=== PATIENT | female | born 1985 | race African-American/Black ===

== ENCOUNTER 2016-09-24 02:01 | Inpatient (IN) | payer MEDICAID, OTHER ==
[~2016-09-24] VITALS: Ht 162.6 cm; Wt 72.6 kg
[~2016-09-24 02:01] MED LIST: PREN1MIS11 PO
[2016-09-24] MEDS ORDERED: LACTATED RINGER'S 1000 ML INJ 1,000 ML IV PRN (02:34)
[2016-09-24] MEDS ORDERED: LACTATED RINGER'S 1000 ML INJ 1,000 ML IV SCH (02:34)
--- NOTE | 2016-09-24 02:42 | HHI.HP ---
HPI Travel History International Travel<30 Days: No Contact w/Intl Traveler<30Days: No Known Affected Area: No History of Present Illness HPI This patient is a 30-year-old 2 para 1 EDC is October 01, 2016 presently at 39 weeks today she presents the chief complaint of onset of contractions at around 1:30 AM subsequent rupture of membranes at about 2:25 PM. Contractions every 2 minutes no vaginal bleeding care was sutured was course is significant for positive group B strep History Past Medical History Narrative Medical No known drug allergies no major medical problems Obstetric History Obstetric History 2 para 1 First baby born July [birth year], 2014 male weight 7 lbs. 5 oz. vaginal delivery Past Surgical History Surgical History: No Previous Surgery Family History Family History: Negative Social History Alcohol Use: No Tobacco Use: No Substance Abuse: No Allergies-Medications (Allergen,Severity, Reaction): Coded Allergies: No Known Allergies (Unverified , 09/19/16) Home Meds Active Scripts W/O Vit A W/ Fe Carbo Pack (Citranatal 90 Dha Pack)90-1 & 300 Mg Pack1 Ea PO DAILY #30 BLISTER Ref 3 30 day supply. Prov:Karie Woods CNM [facility] 09/03/16 W/O Vit A W/ Fe Carbo Pack (Citranatal 90 Dha Pack)90-1 & 300 Mg Pack Sample #3 Prov:Karie Woods CNM [facility] 09/03/16 Review of Systems Gastrointestinal: Abdominal Pain Genitourinary: Other Physical Exam Narrative GENERAL: Well-nourished, well-developed patient. Alert oriented 3 and cooperative in moderate distress secondary to uterine contractions CARDIOVASCULAR: Regular rate and rhythm without murmurs, gallops, or rubs. RESPIRATORY: Breath sounds equal bilaterally. No accessory muscle use. ABDOMEN/GI: Gravid term estimated weight 8 pounds palpable contractions every 2 minutes Gravid to [-] weeks size term Fundal Height: [-] GENITOURINARY: External Genitalia: intact and normal in appearance BUS glands: [-] Cervix: [-] Midline Dilatation: [-] 7 cm Effacement: [-] 100% effaced Station: [-] +1 station Presentation: [-] Vertex Membranes: ruptured] Uterine Contractions: [-] Every 2 minutes FHT's: Category: [-] 1 Baseline: [-] 140 Reactive: [-] Reactive with accelerations up to 160 Variability: [-] Moderate Decels: [-] Negative EXTREMITIES: No cyanosis or edema.2+ NEUROLOGICAL: Awake and alert. Motor and sensory grossly within normal limits. Five out of 5 muscle strength in all muscle groups. Normal speech. Data Data Vital Signs Reviewed: Yes (blood pressure blood pressure 128/78 afebrile) Orders Admit To Inpatient (09/24/16 ) Ob (2e) Additional Admit Info (09/24/16 02:24) Admit To Inpatient (09/24/16 ) Code Status (09/24/16 02:34) Vital Signs (Adult) .Per protocol (09/24/16 02:34) ^ Heart (09/24/16 02:34) ^ Amnioinfusion (09/24/16 02:34) Urinary Catheter Management .ONCE (09/24/16 02:34) Diet Liquid (09/24/16 Breakfast) Lactated Ringer's 1000 Ml Inj (Lr 1000 M (09/24/16 02:34) Lactated Ringer's 1000 Ml Inj (Lr 1000 M (09/24/16 02:34) Sodium Chlorid 0.9% 500 Ml Inj (Ns 500 M (09/24/16 02:45) Sodium Chlor 0.9% 1000 Ml Inj (Ns 1000 M (09/24/16 02:54) Lidocaine 1% Inj (50 Ml) (Xylocaine 1% I (09/24/16 02:45) Citric Acid-Sodium Citrate Liq (Bicitra (09/24/16 02:45) Ondansetron Inj (Zofran Inj) (09/24/16 02:45) Fentanyl Inj (Fentanyl Inj) (09/24/16 02:45) Fentanyl Inj (Fentanyl Inj) (09/24/16 02:45) Penicillin G Potassium Inj (Pfizerpen-G (09/24/16 02:45) Assessment/Plan Assessment and Plan Assessment; intrauterine at term Active labor Positive group B strep Plan; admitted IV fluid hydration CBC type and screen Penicillin coverage for group B strep Pain control Anticipate vaginal delivery Vee Kelley MD Sep 24, 2016 02:42
[2016-09-24] MEDS ORDERED: MINERAL OIL 10 ML VIAL TOPICAL PRN (02:45)
[2016-09-24] MEDS ORDERED: LIDOCAINE HCL 1% 50 ML VIAL I-DERMAL PRN (02:45)
[2016-09-24] MEDS ORDERED: ONDANSETRON HCL 4 MG/2 ML VIAL IV PRN (02:45)
[2016-09-24] MEDS ORDERED: OXYTOCIN 30 UNITS-500ML PREMIX 500 ML IV ONE (02:45)
[2016-09-24] MEDS ORDERED: LIDOCAINE HCL 1% 50 ML VIAL INFIL PRN (02:45)
[2016-09-24] MEDS ORDERED: CITRIC ACID-SODIUM CITRATE LIQ 30 ML UDC PO SCH (02:45)
[2016-09-24] MEDS ORDERED: SODIUM CHLORID 0.9% 500 ML INJ 500 ML IV PRN (02:45)
[2016-09-24] MEDS ORDERED: PENICILLIN G POTASSIUM INJ 5,000,000 UNITS in SODIUM CHLORIDE 0.9% INJ 100 ML IV ONE (02:45)
[2016-09-24 02:46] LABS: BASOPHIL % 0.3 % (0.0-2.0); EOSINOPHIL % 0.2 % (0.0-4.0); HEMATOCRIT 37.1 % (35.0-46.0); HEMO FLAGS DIFF FINAL; LYMPH % 29.3 % (9.0-44.0); LYMPHOCYTE # 2.8 TH/MM3 (1.0-4.8); MEAN CELL VOLUME 92.5 FL (80.0-100.0); MEAN CORPUSCULAR HEMOGLOBIN 31.7 PG (27.0-34.0); MEAN CORPUSCULAR HGB CONC 34.3 % (32.0-36.0); MONO % 7.2 % (0.0-8.0); PLATELET COUNT 206 TH/MM3 (150-450); RED BLOOD COUNT 4.01 MIL/MM3 (4.00-5.30); RED CELL DISTRIBUTION WIDTH 16.7 % (11.6-17.2); WHITE BLOOD COUNT 9.5 TH/MM3 (4.0-11.0)
[2016-09-24] MEDS ORDERED: SODIUM CHLOR 0.9% 1000 ML INJ 1,000 ML IV PRN (02:54)
--- NOTE | 2016-09-24 03:22 | PD.OB.DELI ---
Delivery Date: Sep 24, 2016 Anesthesia: None Episiotomy: None Vaginal Delivery: Normal Presentation: Occiput anterior Nuchal Cord: None : Female One Minute : 9 Five Minute : 9 Weight: [id number] Infant Care: Suctioned Placenta: Spontaneous delivery, Intact, 3 vessel cord Laceration: 2 deg Repair: Chromic running Additional Information This 30-year-old 2 now para 2 at 39 weeks presented to labor and delivery at 4 cm rapidly progressed to completely dilated completely effaced light meconium fluid group B strep positive she received 1 dose of penicillin delivered over an intact perineum a viable female weight 6 lbs. 11 oz. Apgars of 9 at 1 minute 9 at 5 minutes. Placenta delivered spontaneously and intact she sustained a small second-degree laceration which was repaired with 2- 0 chromic suture under local lidocaine infiltration Uterus is firm no active bleeding Estimated blood loss less than 300 cc Sponge and instrument count were correct Baby stable mother stable Mother's questions answered Vee Kelley MD Sep 24, 2016 03:22
[2016-09-24] MEDS ORDERED: ALUMINUM/MAGNESIUM/SIMETH 30 ML CUP PO PRN (03:30)
[2016-09-24] MEDS ORDERED: ONDANSETRON ODT 4 MG TAB PO PRN (03:30)
[2016-09-24] MEDS ORDERED: SODIUM CHLORIDE 0.9% FLUSH 5 ML FLUSH IV PRN (03:30)
[2016-09-24] MEDS ORDERED: WITCH HAZEL 50%/GLYCERIN 12.5% 40 PAD JAR TOPICAL PRN (03:30)
[2016-09-24] MEDS ORDERED: ACETAMINOPHEN 325 MG TAB PO PRN (03:30)
[2016-09-24] MEDS ORDERED: DOCUSATE SODIUM 50 MG/SENNA 8.6 MG TAB PO PRN (03:30)
[2016-09-24] MEDS ORDERED: BENZOCAINE 20% TOPICAL SPRAY 60 ML CAN TOPICAL PRN (03:30)
[2016-09-24] MEDS ORDERED: ZOLPIDEM TARTRATE 5 MG TAB PO PRN (03:30)
[2016-09-24] MEDS ORDERED: PENICILLIN G POTASSIUM INJ 2,500,000 UNITS in SODIUM CHLORIDE 0.9% INJ 100 ML IV SCH (06:45)
--- NOTE | 2016-09-24 08:12 | HHI.OB ---
Subjective Post Day: 0 Remarks Pt seen and examined this morning. Post day # 0 AFVSS overnight. Decreased lochia. Denies dysuria. No breast tenderness. She is feeding the baby via breast and bottle. Appetite good. No nausea or vomiting. Patient has not yet had a bowel movement or passed gas. Ambulating well. Denies calf pain or shortness of breath. Otherwise, she is doing well this morning and has no other concerns. Objective Objective Remarks GENERAL: Well-nourished, well-developed patient. CARDIOVASCULAR: Regular rate and rhythm without murmurs, gallops, or rubs. RESPIRATORY: Breath sounds equal bilaterally. No accessory muscle use. ABDOMEN/GI: Abdomen soft, non-tender. Fundus: Firm, non-tender at umbilicus. GENITOURINARY: Light to moderate bleeding. EXTREMITIES: No cyanosis or edema, non-tender, without signs of DVT. Medications and IVs Current Medications Medications (Trade) Dose Ordered Sig/Nikki Route Start Time Stop Time Status Last Admin (NS Flush) 2 ml BID IV 09/24/16 09:00 (NS Flush) 2 ml UNSCH PRN IV 09/24/16 03:30 (Tylenol) 650 mg Q4H PRN PO 09/24/16 03:30 (Motrin) 600 mg Q6H PRN PO 09/24/16 03:30 (Americaine 20% Top Spr) 1 spray Q4H PRN TOPICAL 09/24/16 03:30 (Tucks Pads) 1 applic QID PRN TOPICAL 09/24/16 03:30 (Bethanie-Colace) 2 tab Q12H PRN PO 09/24/16 03:30 (Ambien) 5 mg HS PRN PO 09/24/16 03:30 (M-M-R Ii Inj) 0.5 ml ONCE ONCE SQ 09/24/16 16:00 09/24/16 16:01 (Boostrix Inj) 0.5 ml ONCE ONCE IM 09/24/16 16:00 09/24/16 16:01 (Mag-Al Plus Susp Liq) 15 ml Q8H PRN PO 09/24/16 03:30 (Zofran Odt) 4 mg Q6H PRN PO 09/24/16 03:30 Assessment/Plan Assessment and Plan 30y/o female who is day # 0 s/p . -Continue routine care. -Percocet and Motrin PRN pain. -Encouraged OOB. Advised pelvic rest for 6 wks. -Re: ctrl, she would like an IUD. Arrangements to be discussed at 6 week OB appointment. -Anticipate discharge in 1-2 days. wyatt Flowers MD Discharge Planning 1-2 days Herrera Bustillo MD R1 Sep 24, 2016 08:12
[2016-09-24] MEDS: IBUPROFEN 600 MG TAB PO PRN ×2 (09:19→23:18)
[2016-09-24] MEDS: SODIUM CHLORIDE 0.9% FLUSH 5 ML FLUSH IV SCH (09:20)
[2016-09-24 15:38] LABS: BLOOD, URINE MOD (NEG); COMMENT (UR) CULT NOT INDICATED; CULTURE IF INDICATED CULT NOT INDICATED; GLUCOSE,URINE NEG (NEG); KETONE, URINE NEG (NEG); NITRITE,URINE NEG (NEG); URINE COLOR YELLOW (YELLW/STRAW)
[2016-09-24] MEDS ORDERED: MEASLES, MUMPS, RUBELLA VACCINE 0.5 ML VIAL SQ ONE (16:00)
[2016-09-24] MEDS ORDERED: DIPHTH/TETANUS/ACEL PERTUSSIS (BOOSTER) 0.5 ML VIAL/PFS IM ONE (16:00)
--- NOTE | 2016-09-25 07:58 | HHI.OB ---
Subjective Post Day: 1 Remarks doing well , + cramps, bleeding decreased, tolerating diet , nl bowel & bladder fxn exam -- uterus NT at umb Imp -nl PP course Plan -D/C in am Objective Objective Remarks GENERAL: Well-nourished, well-developed patient. CARDIOVASCULAR: Regular rate and rhythm without murmurs, gallops, or rubs. RESPIRATORY: Breath sounds equal bilaterally. No accessory muscle use. ABDOMEN/GI: Abdomen soft, non-tender. Fundus: Firm, non-tender at umbilicus. GENITOURINARY: Light to moderate bleeding. EXTREMITIES: No cyanosis or edema, non-tender, without signs of DVT. Medications and IVs Current Medications Medications (Trade) Dose Ordered Sig/Nikki Route Start Time Stop Time Status Last Admin (NS Flush) 2 ml BID IV 09/24/16 09:00 09/24/16 09:20 (NS Flush) 2 ml UNSCH PRN IV 09/24/16 03:30 (Tylenol) 650 mg Q4H PRN PO 09/24/16 03:30 (Motrin) 600 mg Q6H PRN PO 09/24/16 03:30 09/24/16 23:18 (Americaine 20% Top Spr) 1 spray Q4H PRN TOPICAL 09/24/16 03:30 (Tucks Pads) 1 applic QID PRN TOPICAL 09/24/16 03:30 (Bethanie-Colace) 2 tab Q12H PRN PO 09/24/16 03:30 (Ambien) 5 mg HS PRN PO 09/24/16 03:30 (Mag-Al Plus Susp Liq) 15 ml Q8H PRN PO 09/24/16 03:30 (Zofran Odt) 4 mg Q6H PRN PO 09/24/16 03:30 (Flu (Quadrivalent) Vaccine Inj) 0.5 ml ONCE ONCE IM 09/25/16 10:00 09/25/16 10:01 Assessment/Plan Assessment and Plan 30y/o female who is day # 0 s/p . -Continue routine care. -Percocet and Motrin PRN pain. -Encouraged OOB. Advised pelvic rest for 6 wks. -Re: ctrl, she would like an IUD. Arrangements to be discussed at 6 week OB appointment. -Anticipate discharge in 1-2 days. Discharge Planning 1-2 days Rik Quiles II, MD Sep 25, 2016 07:58 Rik Quiles II, MD Sep 25, 2016 07:58
--- NOTE | 2016-09-25 08:54 | HHI.OB ---
Subjective Post Day: 1 Remarks Pt seen and examined this morning. day # 1 AFVSS overnight. Decreased lochia. Denies dysuria. No breast tenderness. She is feeding the baby via breast. Appetite good. No nausea or vomiting. Patient has not had a bowel movement, but has passed gas. Ambulating well. Denies calf pain or shortness of breath. Otherwise, she is doing well this morning and has no other concerns. Objective Objective Remarks GENERAL: Well-nourished, well-developed patient. CARDIOVASCULAR: Regular rate and rhythm without murmurs, gallops, or rubs. RESPIRATORY: Breath sounds equal bilaterally. No accessory muscle use. ABDOMEN/GI: Abdomen soft, non-tender. Fundus: Firm, non-tender at umbilicus. GENITOURINARY: Light to moderate bleeding. EXTREMITIES: No cyanosis or edema, non-tender, without signs of DVT. Medications and IVs Current Medications Medications (Trade) Dose Ordered Sig/Nikki Route Start Time Stop Time Status Last Admin (NS Flush) 2 ml BID IV 09/24/16 09:00 09/24/16 09:20 (NS Flush) 2 ml UNSCH PRN IV 09/24/16 03:30 (Tylenol) 650 mg Q4H PRN PO 09/24/16 03:30 (Motrin) 600 mg Q6H PRN PO 09/24/16 03:30 09/24/16 23:18 (Americaine 20% Top Spr) 1 spray Q4H PRN TOPICAL 09/24/16 03:30 (Tucks Pads) 1 applic QID PRN TOPICAL 09/24/16 03:30 (Bethanie-Colace) 2 tab Q12H PRN PO 09/24/16 03:30 (Ambien) 5 mg HS PRN PO 09/24/16 03:30 (Mag-Al Plus Susp Liq) 15 ml Q8H PRN PO 09/24/16 03:30 (Zofran Odt) 4 mg Q6H PRN PO 09/24/16 03:30 (Flu (Quadrivalent) Vaccine Inj) 0.5 ml ONCE ONCE IM 09/25/16 10:00 09/25/16 10:01 Assessment/Plan Assessment and Plan 30y/o female who is day #1 s/p . -Continue routine care. -Percocet and Motrin PRN pain. -Encouraged OOB. Advised pelvic rest for 6 wks. -Re: ctrl, she would like an IUD. Arrangements to be discussed at 6 week OB appointment. -Anticipate discharge tomorrow. DW: Dr. Quiles Discharge Planning Likely tomorrow Herrera Bustillo MD R1 Sep 25, 2016 08:54
[2016-09-25] MEDS: SODIUM CHLORIDE 0.9% FLUSH 5 ML FLUSH IV SCH ×2 (09:00→21:00)
[2016-09-25] MEDS ORDERED: INFLUENZA VIRUS VACCINE (QUADRIVALENT) 0.5 ML SYR IM ONE (10:00)
[2016-09-25] MEDS: IBUPROFEN 600 MG TAB PO PRN ×2 (10:48→22:32)
[2016-09-26] MEDS ORDERED: IBUP-232 PO (09:03)
[2016-09-26] MEDS ORDERED: SENN1TAB PO (09:03)
--- NOTE | 2016-09-26 09:03 | HHI.DCPOC ---
Discharge Care Plan Diagnosis: (1) Vaginal delivery Report Symptoms to Your Doctor -Temperate above 100.5 degrees -Redness, of incision or excessive or foul smelling drainage -Unusual pain or calf pain -Increased vaginal bleeding -Painful or difficulty urinating -Feelings of extreme sadness or anxiety after 2 weeks Goals to Promote Your Health * To prevent worsening of your condition and complications * To maintain your health at the optimal level Directions to Meet Your Goals Take your medications as prescribed Follow your dietary instruction Follow activity as directed Ensure plenty of rest for recovery Drink fluids for hydration Keep your appointments as scheduled Take your immunizations and boosters as scheduled If your symptoms worsen call your PCP, if no PCP go to Urgent Care Center or Emergency Room Smoking is Dangerous to Your Health. Avoid second hand smoke Call the 24-hour crisis hotline for domestic abuse at Herrera Bustillo MD R1 Sep 26, 2016 09:03
[2016-09-26] MEDS ORDERED: ABDOMINAL BINDE1 MI1 (09:14)
--- NOTE | 2016-09-26 09:15 | HHI.OB ---
Subjective Post Day: 2 Remarks Pt seen and examined this morning. day # 2 AFVSS overnight. Decreased lochia. Denies dysuria. No breast tenderness. She is feeding the baby via breast. Appetite good. No nausea or vomiting. Patient has not yet had a bowel movement, but has passed gas. Ambulating well. Denies calf pain or shortness of breath. Otherwise, she is doing well this morning and has no other concerns. Objective Objective Remarks GENERAL: Well-nourished, well-developed patient. CARDIOVASCULAR: Regular rate and rhythm without murmurs, gallops, or rubs. RESPIRATORY: Breath sounds equal bilaterally. No accessory muscle use. ABDOMEN/GI: Abdomen soft, non-tender. Fundus: Firm, non-tender at umbilicus. GENITOURINARY: Light to moderate bleeding. EXTREMITIES: No cyanosis or edema, non-tender, without signs of DVT. Medications and IVs Current Medications Medications (Trade) Dose Ordered Sig/Nikki Route Start Time Stop Time Status Last Admin (NS Flush) 2 ml BID IV 09/24/16 09:00 09/24/16 09:20 (NS Flush) 2 ml UNSCH PRN IV 09/24/16 03:30 (Tylenol) 650 mg Q4H PRN PO 09/24/16 03:30 (Motrin) 600 mg Q6H PRN PO 09/24/16 03:30 09/25/16 22:32 (Americaine 20% Top Spr) 1 spray Q4H PRN TOPICAL 09/24/16 03:30 09/25/16 22:32 (Tucks Pads) 1 applic QID PRN TOPICAL 09/24/16 03:30 09/25/16 22:32 (Bethanie-Colace) 2 tab Q12H PRN PO 09/24/16 03:30 09/25/16 22:32 (Ambien) 5 mg HS PRN PO 09/24/16 03:30 (Mag-Al Plus Susp Liq) 15 ml Q8H PRN PO 09/24/16 03:30 (Zofran Odt) 4 mg Q6H PRN PO 09/24/16 03:30 Assessment/Plan Assessment and Plan 30y/o female who is day #2 s/p . -Continue routine care. -Percocet and Motrin PRN pain. -Encouraged OOB. Advised pelvic rest for 6 wks. -Re: ctrl, she would like an IUD. Arrangements to be discussed at 6 week OB appointment. -Anticipate discharge today. DW: Dr. Flowers Discharge Planning Today Herrera Bustillo MD R1 Sep 26, 2016 09:15
== END 2016-09-26 14:30 | disposition home or self-care (01) | DRG 775 ==
LOC: HOBED 02:01 → H2EB 02:26 → H1EA 04:43
PROVIDERS: ADMIT Obstetrics & Gynecology; ATTEND Obstetrics & Gynecology
PROC: 10E0XZZ Delivery of Products of Conception, External Approach (ICD-10-PCS; principal; 2016-09-24)
PROC: 0KQM0ZZ Repair Perineum Muscle, Open Approach (ICD-10-PCS; 2016-09-24)
DX: O99.824 Streptococcus B carrier state complicating childbirth (principal); O77.0 Labor and delivery complicated by meconium in amniotic fluid; O70.1 Second degree perineal laceration during delivery; Z23 Encounter for immunization; Z3A.39 39 weeks gestation of pregnancy; Z37.0 Single live birth
CPT/HCPCS: 81001; 85025; 86900; 86901; 90686; 90715; J2540; J7120; Q2038